=== PATIENT | female | born 1940 | race Caucasian/White ===

== ENCOUNTER 2024-05-30 09:30 | Day surgery (SDC) | payer MEDICARE, OTHER, SELFPAY ==
--- OUTSIDE RECORDS SUMMARY | 2024-04-15 10:09 | XMS_ITS | Data Portability ---
Author Organization [facility], [facility] Address [address] [place] [address] Care Team Providers Care Lehr Operator Name Role Phone PEDRO ABRAMSUR Primary Care Provider Assessment Encounter Date Assessment Date Assessment LastModified by Organization Details LastModified Time 09/25/2017 09/25/2017 X-rays of her hip show no evidence of problems with her right hip replacement. Assessment: Trochanteric bursitis, right hip. Recommendation: Injection followed by physical therapy. She agreed. Injection was performed to well-tolerated. Postinjection care discussed. She will set up a follow-up appointment for about 8 weeks from now. [email or web address] Not available 09/25/2017 08:57:27 Plan of Treatment Reminders Order Date Submit Date Provider Last Modified By Organization Details Last Modified Time Details Appointments None record ed. Lab None record ed. Referral None record ed. Procedures None record ed. Surgeries None record ed. Imaging None record ed. Medication Orders None record ed. Patient TargetsNo targets recorded. Patient InstructionsNo instructions recorded. Reason for Referral None Reported. Results Created Date Observation Date Name Description Value Unit Range Abnormal Flag Note LastModifiedBy Organization Detail LastModifiedTime 09/26/19 18 09/25/2017 XR, hip, unila teral , 2 or 3 view PRELIM INARY INTERP RETATI ON - NOT A FINAL REPORT RESPON SIBLE INTERP RETER: Herminia toscano M.D. (resid ent) EXAMIN ATION: XR HIP 2-3 VW RIGHT (PELVI S OPTION AL) CLINIC AL INDICA TION: Right hip pain status post right total hip arthro plasty . TECHNI QUE: AP view of the pelvis , frog-l eg in AP views of the right hip. COMPAR LARISA: Right hip radiog raph from August 06, 2015. FINDIN GS: The AP pelvis demons trates a normal left hip for the patien t's age. The bony pelvis appear s normal for the patien t's age. There is osteo arthri tis at the facet joints of L5-S1. There is severe athero sclero tic calcif icatio n of the abdomi nal aorta. Two views of the right hip demons trate right hip arthro plasty in normal alignm ent withou t eviden ce of loosen ing. IMPRES JENNIFER: 1. Right total hip arthro plasty is in anatom ic alignm ent withou t loosen ing. 2. Osteoa rthrit is of the facet joints of L5-S1. 3. Advanc ed calcif ic athero sclero sis of the abdomi nal aorta. Dictat ed: 2017 10:36 AM Report ID: [id number] Report ed By: Herminia toscano M.D. (resid ent) (EKIPE [id number]) [facility] Radiology (Imaging) [address] [facility], [place], [address], 09/25/2017 11:01:45 09/26/19 18 09/25/2017 XR, hip, unila teral , 2 or 3 view RESPON SIBLE INTERP RETER: Daren craven M.D. EXAMIN ATION: XR HIP 2-3 VW RIGHT (PELVI S OPTION AL) CLINIC AL INDICA TION: Right hip pain status post right total hip arthro plasty . TECHNI QUE: AP view of the pelvis and two views of the right hip. COMPAR LARISA: Right hip radiog raph from August 06, 2015. FINDIN GS: The AP pelvis demons trates a normal left hip for the patien t's age. The bony pelvis appear s normal for the patien t's age. There is osteoa rthrit is at the facet joints of L5-S1. There is severe athero sclero tic calcif icatio n of the abdomi nal aorta. Two views of the right hip demons trate right hip arthro plasty in normal alignm ent withou t eviden ce of loosen ing. IMPRES JENNIFER: 1. Right total hip arthro plasty is in anatom ic alignm ent withou t loosen ing. 2. Osteoa rthrit is of the facet joints of L5-S1. 3. Advanc ed calcif ic athero sclero sis of the abdomi nal aorta. I, the attend ing physic gonzalo, attest that I have perfor med and/or superv ised the reside nt for the ortega and critic al compon ents of this proced ure. I have person ally review ed the images pertin ent to this examin ation and agree with the interp retati on. Dictat ed: 2017 12:23 PM Report ID: [id number] Report signed in assistant city attorney al system at 018 12:23 Report ed By: Herminia toscano M.D. (resid ent) (EKIPE [id number]) Signed By: Daren craven M.D. (SHOM) [address] Radiology (Imaging) [address] [place] [address], [id number], 09/25/2017 12:37:48 Result Notes None recorded. Procedures Surgical History Date Name Laterality Status Provider Name and Address Organization Details Recorded Time 8 CML Hip injection (right/left) completed CITLALY MELARA MD [address] [place] [address],SUITE [facility], [place], [address] 09/25/2017 08:57:50 Hip Surgery completed Daniela Oliva [facility] 09/25/2017 08:27:13 Imaging Results Imaging Date Name Status LastModified by [facility]iz [facility] Details LastModified Time 09/25/2017 XR, hip, unilateral , 2 or 3 view completed [address] Radiology (Imaging) [address] [place] [address], [id number], 09/25/2017 11:01:45 09/25/2017 XR, hip, unilateral , 2 or 3 view completed [address] Radiology (Imaging) [address] [place] [address], [id number], 09/25/2017 12:37:48 Procedure Notes None recorded. Medical Equipment None Reported. Allergies Allergen ID Allergen Name Allergen Category Reaction Reaction Severity Criticality Documentation Date Start Date Code Code System Note Provider Name and Address Organization Details Recorded Time 202928 No known allergy (situatio n) Not available Not available Not available Not available 04/14/2016 57930 6003 SNOMED Not Available Critical [facility] hospital 7 19:02:54 Medications Name Sig Start Date Stop Date Status Note LastModified by Organization Details LastModified Time amoxicillin 500 mg tablet 1 hour before dental work 2016 active Refill Quantity: 0; Recorded 03/05/2016 1:57PM by CITLALY MELARA MD, Review Not Available Not Available Not Available Doxycycline Hyclate Coated 100 mg capsule active Recorded 09/21/2015 1:53PM by Remi Garcia, Surgery Completed Not Available Not Available Not Available lisinopril 10 mg-hydrochl orothiazide 12.5 mg tablet active Not Available Not Available Not Available doxycycline hyclate 100 mg tablet active Not Available Not Available No t Available Vitals Date Recorded Body height Body mass index (BMI) Body weight Body temperature Provider Name and Address Organization Details Last Updated DateTime 09/25/2017 157.48 cm 26.7 kg/m2 75295.49 g 97.8 [degF] Daniela Oliva MA - [facility] 09/25/2017 08:25:47 Date Recorded Pain severity - 0-10 verbal numeric rating [Score] - Reported Provider Name and Address Organization Details Last Updated DateTime 09/25/2017 8 Not Available Critical access hospital 8 05:59:29 Social History Question Answer Notes LastModified by Organizat ion Details LastModified Time Tobacco Smoking Status Never Smoker Daniela wiseman MA [facility] 09/25/2017 08:19:14 Do You Have An Advance Directive? Yes [email or web address] Information not available 09/25/2017 What Is Your Level Of Alcohol Consumption? Occasional [email or web address] Information not available 09/25/2017 Which Illicit Or Recreational Drugs Have You Used? None [email or web address] Information not available 09/25/2017 How Many Days In The Past Year Have You Had A Heavy Drinking Consumption (4+ Female, 5+ Male)? 0 Information no t available 09/25/2017 What Was The Date Of Your Most Recent Tobacco Screening? 09/25/2017 Information not available 09/08/2018 Sex: Unknown Functional Status None recorded. Mental Status None recorded. Family History Relationship Description Onset Age of this Age Resolved Age Notes LastModified by Organization Details LastModified Time Father Heart disease [email or web address] Not available 2017 08:26:39 Father Myocardial infarction Not available 09/25 08:26:45 Mother Heart disease [email or web address] Not available 2017 08:26:39 Notes:Blood clot: mother Medical History Condition Response Gout N Lung Disease N Depression N Pacemaker N Deep Vein Thrombosis N Blood Clot N Acid Reflux (GERD) N Cancer N Rheumatoid Arthritis N Fibromyalgia N Kidney Disease N Thyroid Problems N Heart Attack ([place]) N Diabetes N Bleeding Disorder N Asthma/COPD N Hepatitis N Heart Disease N Hypertension N Stomach Ulcer N Osteoporosis N Gynecological HistoryNo gynecological history recorded. Obstetrics History GPAL:G 0 P 0 0 0 0 Past Encounters Encounter ID Performer Location Encounter Start Date Encounter Closed Date Diagnosis/Indication Diagnosis SNOMED-CT Code Diagnosis ICD10 Code Diagnosis Note [id number] CITLALY MELARA MD [address] [place] [address] 09/25/2017 07:46:28 09/25/2017 08:52:26 Health Concerns Section Related Observation LastModified by Organization Detai ls LastModified Time None Recorded Concern Status LastModified by Organization Details LastModified Time None Recorded Advance Directives Directive Y: Payers Encounter Date Sequence Insurance Name Policy Number Policy Hanks Covered Member ID Hanks Member ID Guarantor Name 09/25/2017 1 [place] B-[place] [employer] Maurice Armsa [id number] Maurice Armas 09/25/2017 2 [employer] [place] - PLAN 1 (MEDICARE SUPPLEMENT) Maurice Armas [id number] Maurice Armas Notes Date Note Type Note Provider Name and Address Organization Details Recorded Time 09/25/2017 text/html This 77-year-old female is here today regarding right hip pain. She is 2 years after right total hip replacement. She is generally quite active. An avid golfer. For several months she's been experiencing some pain around the lateral right hip. It bothers after she is more heavily active. It bothers if she lies on it at night. It is noticeable getting up from sitting and climbing stairs. She denies fever or chills and feels well. She has been to the dentist but is taken her prophylactic antibiotic. CITLALY MELARA MD [address] [place] [address],[address], [place], [address], [facility] - [facility] 09/25/2017 08:58:04 OBGyn Episode No OBEpisode recorded.
[2024-05-25 10:05] VITALS: BMI 27.0
[2024-05-30 10:38] VITALS: BP 114/64; PULSE 59; RESP 14; TEMP 36.8; O2SAT 97
[2024-05-30] MEDS: Tetracaine HCl/PF 0.5% Oph Sol 4 ML DROPS 1 DROP EYE-LEFT (10:41)
[2024-05-30] MEDS: Lactated Ringers 500 ML 50 ML IV (10:41)
[2024-05-30] MEDS: Phenylephrine HCL 2.5% Oph SoL 2 ML BOTTLE 1 DROP EYE-LEFT ×3 (10:42→10:50)
[2024-05-30] MEDS: Cyclopentolate 1 % Ophth Sol 2 ML DRPBTL 1 DROP EYE-LEFT ×3 (10:43→10:48)
[2024-05-30] MEDS: Tropicamide 1 % Ophth Sol 3 ML BTL 1 DROP EYE-LEFT ×3 (10:43→10:49)
--- NOTE | 2024-05-30 10:43 | P.CONAN_ITS ---
HPI - Anesthesia Eval Consult details Narrative: 84 yo F presenting for left cataract extraction IOL insertion [facility] Past Medical History Medical History (Updated 05/25/24 @ 10:01 by Nicole Hawkins RN) PVC's (premature ventricular contractions) Sinus bradycardia Rosacea Polymyalgia rheumatica Onychomycosis HTN (hypertension) HLD (hyperlipidemia) Constipation BPPV (benign paroxysmal positional vertigo) Cataracts, bilateral Family History Family history of problems with anesthesia: No Surgical History Surgical History (Updated 05/25/24 @ 10:01 by Nicole Hawkins RN) History of carpal tunnel release History of hip replacement Hx of tonsillectomy Hx of tubal ligation Hx of colonoscopy History of Problems with Anesthesia: No Social History Social History (Updated 05/25/24 @ 10:09 by Nicole Hawkins RN) Household Members: None Patient Tobacco Use Status: Never used Tobacco e-Cigarette/Vaping Use: Never Used Advance Directives: No Advance Directives Information Provided: Yes Advance Directives on File: No Healthcare Proxy: No Meds Allergies Allergy/AdvReac Type Severity Reaction Status Date / Time No Known Allergies Allergy Verified 05/25/24 10:01 Active Medications: Current Medications Lactated Ringer's (Lr) 500 mls @ 50 mls/hr IV .Q10H DEMETRIUS Stop: 05/30/24 20:14 Povidone Iodine (Povidone Iodine 5 % Ophth Soln 30 Ml Bottle) 1 appl EYE-LEFT PREOP PRN PRN Reason: Pre-Op Surgical Implant Prophy Home Medications ?Medication ?Instructions ?Recorded ?Confirmed ?Last Taken ?Type Stool Softener 05/25/24 05/25/24 Unknown History brimonidine 0.2 % eye drops 1 drp ophthalmic (eye) BID 05/25/24 05/25/24 Unknown History fluticasone propionate 50 1 spray intranasal DAILY 05/25/24 05/25/24 Unknown History mcg/actuation nasal spray,suspension hydrocortisone 2.5 % topical topical 05/25/24 Unknown History ointment lisinopril 10 0.5 tab PO DAILY 05/25/24 05/25/24 Unknown History mg-hydrochlorothiazide 12.5 mg tablet multivitamin 1 tab PO DAILY 05/25/24 05/25/24 Unknown History Exam Exam Date and Time: 05/30/24 1034 Height,Weight and Vital Signs: Height 5 ft 1.02 in Weight 64.8 kg Last Vital Signs Temp 98.2 F 05/30/24 10:38 Pulse 59 05/30/24 10:38 Resp 14 05/30/24 10:38 BP 114/64 05/30/24 10:38 Pulse Ox 97 05/30/24 10:38 O2 Del Method Room Air 05/30/24 10:38 Airway Mallampati Class: II TM Dist: >3cm Neck ROM: Full Loose/Missing/Broken Teeth: No (patient denies any loose or broken teeth) Heart: S1S2 Lungs: CTAB Assessment and Plan Assessment Anesthesia Assessment: Anesthesia Plan Discussed and Chart Reviewed Final Anesthetic Review Family History of Problems with Anesthesia: No History of Problems with Anesthesia: No NPO: Yes ASA Class: II Final Preanesthetic Review: No Changes in Pt Med Stat, Meds/Allgs Chart Reviewed, Consent Obtained/Reviewed and Anes Risks/Benef Reviewed Patient Risk: Low Procedure Risk: Low Anesthetic Plan Anesthetic Plan: MAC: and Agree w/ Assess. and Plan Disposition: Standard PACU
[2024-05-30] MEDS: Ketorolac Tromethamine 0.5% Op 5 ML DROPS 1 DROP EYE-LEFT ×3 (10:44→10:49)
--- NOTE | 2024-05-30 11:16 | MHC.SHP ---
Pre-Procedural Eval Section A - 24 Hr Update-Section A only Date of Service: 05/30/24 The patient is an INPATIENT: No Changes since office visit: No Cold of Flu in the past 2 weeks, No New Medical Problems, No Changes in Medication and No Patient answered all questions The patient has been examined within 24 hours of the surgical procedure. The History & Physical has been completed within 30 days and I have reviewed it.: Yes Section B - Complete if H&P > 30 days Chief Complaint: Age-related nuclear cataract, left eye Allergies: Allergies Allergy/AdvReac Type Severity Reaction Status Date / Time No Known Allergies Allergy Verified 05/30/24 10:52 Plan Diagnosis/Plan: Unchanged I have reviewed the history and physical and performed a pertinent physical examination on my patient. No changes have occurred unless specified. Time Spent With Patient Time: Total time managing care of this patient today ____ minutes.
--- NOTE | 2024-05-30 11:17 | HO.PNOPHT ---
Ophthalmology Procedure Procedure Date of Service: 05/30/24 Ophthalmology Viscoelastic: Healon Duet Dual Pack Pro Ophthalmology Lenses: IOL Acrysof MP - [id number] (20) Procedure Notes: PREOPERATIVE DIAGNOSIS: Decreased visual acuity left eye secondary to cataract POSTOPERATIVE DIAGNOSIS: Same PROCEDURE: Left cataract extraction with intraocular lens insertion SURGEON: Gigi Voss M.D. ANESTHESIA: Topical/MAC ESTIMATED BLOOD LOSS: None COMPLICATIONS: None After obtaining informed consent, the patient was brought to the operation room suite and placed in the supine position. After adequate sedation per anesthesia, topical drops of Tetracaine were given to the left eye. The eye was then prepped and draped in the usual sterile fashion. The operating room microscope was then positioned over the operative eye and a lid speculum placed. A paracentesis was created. Viscoelastic was then instilled into the anterior chamber. A three plane incision was then created temporally, utilizing a 2.85 mm keratome. Capsulotomy forceps were then utilized to create a circular tear capsulotomy. Hydrodissection and hydrodelineation were carried out until adequate mobilization of the nucleus occurred. Phacoemulsification was then utilized to remove the dense central nucleus followed by removal of the cortical material utilizing the automated aspiration irrigation unit. Viscoat elastic was instilled into the posterior capsular bag followed by placement of a posterior chamber intraocular lens without difficulty. The residual Viscoat elastic was then removed utilizing the automated IA machine. The wound was check and found to be watertight. The patient tolerated the procedure well and the lid speculum was removed. Intracameral injection of Vigamox 0.1 mL followed by a subtenon injection of Kenalog-40 0.2 mL were administered. The patient will be seen in the a.m.
[2024-05-30 11:40] VITALS: BP 135/77; PULSE 54; RESP 16; TEMP 36.6; O2SAT 96
== END 2024-05-30 11:54 | disposition home or self-care (01) ==
PROVIDERS: PCP Internal Medicine; Visit Provider Ophthalmology
PROC: (CPT 66985; principal; 2024-05-30 12:30)
DX: H25.12 Age-related nuclear cataract, left eye (principal); H52.4 Presbyopia; H40.1132 Primary open-angle glaucoma, bilateral, moderate stage; H35.3131 Nonexudative age-related macular degeneration, bilateral, early dry stage; H11.153 Pinguecula, bilateral; H18.423 Band keratopathy, bilateral; H18.413 Arcus senilis, bilateral; I10 Essential (primary) hypertension; L71.9 Rosacea, unspecified; Z79.899 Other long term (current) drug therapy; Z87.891 Personal history of nicotine dependence
CPT/HCPCS: 66984; J2250; J3301; V2630

== ENCOUNTER 2024-06-13 07:32 | Day surgery (SDC) | payer MEDICARE, OTHER, SELFPAY ==
--- OUTSIDE RECORDS SUMMARY | 2024-05-18 09:31 | XMS_ITS | Data Portability ---
Author Organization [facility], [facility] Address [address] [place] [address] Care Team Providers Care Dust Mixer Name Role Phone PEDRO ABRAMSUR Primary Care Provider [phone] Assessment Encounter Date Assessment Date Assessment LastModified [...] Dictat ed: 2017 10:36 AM Report ID: [id number] Report ed By: Herminia toscano M.D. (resid ent) (EKIPE [id number]) [email or web address] [facility] Radiology (Imaging) [address] [facility], [place], [address], 09/25/2017 11:01:45 09/26/19 18 09/25/2017 XR, hip, [...] Dictat ed: 2017 12:23 PM Report ID: [id number] Report signed in distillation operator al system at 018 12:23 Report ed By: Herminia toscano M.D. (resid ent) (EKIPE [id number]) Signed By: Daren craven M.D. (SHOM) [address] Radiology (Imaging) [address] [place] [address], [address], 09/25/2017 12:37:48 Result Notes None recorded. Procedures Surgical History Date Name Laterality Status Provider Name and Address Organization Details Recorded Time 8 CML Hip injection (right/left) completed CITLALY MELARA MD [address] [place] [address],SUITE [facility], [place], [address] 09/25/2017 08:57:50 Hip Surgery completed Daniela Oliva [facility] 09/25/2017 08:27:13 Imaging Results Imaging Date Name Status LastModified by Organiz [facility] Details LastModified Time 09/25/2017 XR, hip, unilateral , 2 or 3 view completed [address] Radiology (Imaging) [address] [place] [address], [address], 09/25/2017 11:01:45 09/25/2017 XR, hip, unilateral , 2 or 3 view completed [address] Radiology (Imaging) [address] [place] [address], [address], 09/25/2017 12:37:48 Procedure Notes None recorded. Medical Equipment None Reported. Allergies Allergen ID Allergen Name Allergen Category Reaction Reaction Severity Criticality Documentation Date Start Date Code Code System Note Provider Name and Address Organization Details Recorded Time 396013 No known allergy (situatio n) Not available Not available Not available Not available 04/14/2016 88583 6003 SNOMED Not Available Critical access hospital [...] Updated DateTime 09/25/2017 157.48 cm 26.7 kg/m2 13176.49 g 97.8 [degF] Daniela Oliva MA - [facility] 09/25/2017 08:25:47 Date Recorded Pain severity - 0-10 verbal numeric rating [Score] - Reported Provider Name and Address Organization Details Last Updated DateTime 09/25/2017 8 Not Available Critical access hospital 8 05:59:29 Social History Question Answer Notes LastModified by Organizat ion Details LastModified Time Tobacco Smoking Status Never Smoker Daniela wiseman MA [facility] 09/25/2017 08:19:14 Do You Have An Advance Directive? Yes [email or web address] Information not available 09/25/2017 What Is Your Level Of Alcohol Consumption? Occasional [email or web address] Information not available 09/25/2017 Which Illicit Or Recreational Drugs Have You Used? None [email or web address] Information not available 09/25/2017 How Many Days In The Past Year Have You Had A Heavy Drinking Consumption (4+ Female, 5+ Male)? 0 [email or web address] Information no t available 09/25/2017 What Was The Date Of Your Most Recent Tobacco Screening? 09/25/2017 Information not available 09/08/2018 Sex: Unknown Functional Status None recorded. Mental Status None recorded. Family History Relationship Description Onset Age of this Age Resolved Age Notes LastModified by Organization Details LastModified Time Father Heart disease [email or web address] Not available 2017 08:26:39 Father Myocardial infarction Not available 09/25 08:26:45 Mother Heart disease [email or web address] Not available 2017 08:26:39 Notes:Blood clot: mother Medical History Condition Response Gout N Thyroid Problems N Lung Disease N Depression N Pacemaker N Heart Attack ([place]) N Deep Vein Thrombosis N Diabetes N Bleeding Disorder N Blood Clot N Acid Reflux (GERD) N Cancer N Asthma/COPD N Hepatitis N Heart Disease N Rheumatoid Arthritis N Fibromyalgia N Hypertension N Stomach Ulcer N Osteoporosis N Kidney Disease N Gynecological HistoryNo gynecological history recorded. Obstetrics History GPAL:G 0 P 0 0 0 0 Past Encounters Encounter ID Performer Location Encounter Start Date Encounter Closed Date Diagnosis/Indication Diagnosis SNOMED-CT Code Diagnosis ICD10 Code Diagnosis Note [id number] CITLALY MELARA MD [address] [place] [address] 09/25/2017 07:46:28 09/25/2017 08:52:26 Health Concerns Section Related Observation LastModified by Organization Detai ls LastModified Time None Recorded Concern Status LastModified by Organization Details LastModified Time None Recorded Advance Directives Directive Y: Payers Encounter Date Sequence Insurance Name Policy Number Policy Hanks Covered Member ID Hanks Member ID Guarantor Name 09/25/2017 1 [place] [employer] Maurice Armas [id number] Maurcie Armas 09/25/2017 2 [employer] [place] - PLAN 1 (MEDICARE SUPPLEMENT) Maurice Armas [id number] Maurice Armas Notes Date Note Type Note [...] taken her prophylactic antibiotic. CITLALY MELARA MD [address] [place] [address],[address], [place], [address], [facility] - [facility] 09/25/2017 08:58:04 OBGyn Episode No OBEpisode recorded.
[2024-05-25 10:10] VITALS: BMI 27.0
--- NOTE | 2024-06-09 14:49 | HO.ANESPROP2 ---
Documented by User: Radha Penaloza NP 06/09/24 14:50 HPI - Anesthesia Eval Consult details Narrative: 84yo F for Right Cataract Extraction IOL Insertion Left eye 05/30/24: [facility] 1 PMFSH Past Medical History Medical History (Updated 05/25/24 @ 10:01 by Nicole Hawkins, CATHERINE) PVC's (premature ventricular contractions) Sinus bradycardia Rosacea Polymyalgia rheumatica Onychomycosis HTN (hypertension) HLD (hyperlipidemia) Constipation BPPV (benign paroxysmal positional vertigo) Cataracts, bilateral Family History Family history of problems with anesthesia: No Surgical History Surgical History (Updated 05/31/24 @ 11:46 by Nicole Hawkins RN) History of left cataract extraction (05/30/24) History of carpal tunnel release History of hip replacement Hx of tonsillectomy Hx of tubal ligation Hx of colonoscopy History of Problems with Anesthesia: No Social History Social History (Updated 05/25/24 @ 10:09 by Nicole Hawkins RN) Household Members: None Patient Tobacco Use Status: Never used Tobacco e-Cigarette/Vaping Use: Never Used Are you DNR?: No Advance Directives: No Advance Directives Information Provided: Yes Advance Directives on File: No Meds Allergies Allergy/AdvReac Type Severity Reaction Status Date / Time No Known Allergies Allergy Verified 05/30/24 10:52 Home Medications ?Medication ?Instructions ?Recorded ?Confirmed ?Last Taken ?Type Stool Softener 05/25/24 05/25/24 Unknown History brimonidine 0.2 % eye drops 1 drp ophthalmic (eye) BID 05/25/24 05/30/24 Unknown History fluticasone propionate 50 1 spray intranasal DAILY 05/25/24 05/30/24 Unknown History mcg/actuation nasal spray,suspension hydrocortisone 2.5 % topical topical 05/25/24 Unknown History ointment lisinopril 10 0.5 tab PO DAILY 05/25/24 05/30/24 Unknown History mg-hydrochlorothiazide 12.5 mg tablet multivitamin 1 tab PO DAILY 05/25/24 05/30/24 Unknown History Exam Height,Weight and Vital Signs: Height 5 ft 1.02 in Weight 64.8 kg Assessment and Plan Assessment Anesthesia Assessment: Chart Reviewed Final Anesthetic Review Family History of Problems with Anesthesia: No History of Problems with Anesthesia: No Documented by User: Jeannie Gilbert MD 06/13/24 08:51 [facility] Past Medical History Medical History (Updated 05/25/24 @ 10:01 by Nicole Hawkins, CATHERINE) PVC's (premature ventricular contractions) Sinus bradycardia Rosacea Polymyalgia rheumatica Onychomycosis HTN (hypertension) HLD (hyperlipidemia) Constipation BPPV (benign paroxysmal positional vertigo) Cataracts, bilateral Surgical History Surgical History (Updated 05/31/24 @ 11:46 by Nicole Hawkins, CATHERINE) History of left cataract extraction (05/30/24) History of carpal tunnel release History of hip replacement Hx of tonsillectomy Hx of tubal ligation Hx of colonoscopy Social History Social History (Updated 05/25/24 @ 10:09 by Nicole Hawkins, CATHERINE) Household Members: None Patient Tobacco Use Status: Never used Tobacco e-Cigarette/Vaping Use: Never Used Are you DNR?: No Advance Directives: No Advance Directives Information Provided: Yes Advance Directives on File: No Meds Allergies Allergy/AdvReac Type Severity Reaction Status Date / Time No Known Allergies Allergy Verified 05/30/24 10:52 Home Medications ?Medication ?Instructions ?Recorded ?Confirmed ?Last Taken ?Type Stool Softener 05/25/24 05/25/24 Unknown History brimonidine 0.2 % eye drops 1 drp ophthalmic (eye) BID 05/25/24 05/30/24 Unknown History fluticasone propionate 50 1 spray intranasal DAILY 05/25/24 05/30/24 Unknown History mcg/actuation nasal spray,suspension hydrocortisone 2.5 % topical topical 05/25/24 Unknown History ointment lisinopril 10 0.5 tab PO DAILY 05/25/24 05/30/24 Unknown History mg-hydrochlorothiazide 12.5 mg tablet multivitamin 1 tab PO DAILY 05/25/24 05/30/24 Unknown History Exam Airway Mallampati Class: II (caps all over) TM Dist: >3cm Neck ROM: Full Heart: rrr Lungs: cta Assessment and Plan Assessment Anesthesia Assessment: Anesthesia Plan Discussed Final Anesthetic Review NPO: Yes ASA Class: II Final Preanesthetic Review: No Changes in Pt Med Stat, Meds/Allgs Chart Reviewed and Consent Obtained/Reviewed Patient Risk: Low Procedure Risk: Low Anesthetic Plan Anesthetic Plan: MAC: Disposition: Standard PACU
[2024-06-13 08:42] VITALS: BP 142/67; PULSE 51; RESP 16; TEMP 36.9; O2SAT 97
[2024-06-13] MEDS: Tetracaine HCl/PF 0.5% Oph Sol 4 ML DROPS 1 DROP EYE-RIGHT (08:44)
[2024-06-13] MEDS: Cyclopentolate 1 % Ophth Sol 2 ML DRPBTL 1 DROP EYE-RIGHT ×3 (08:45→08:53)
[2024-06-13] MEDS: Tropicamide 1 % Ophth Sol 3 ML BTL 1 DROP EYE-RIGHT ×3 (08:46→08:53)
[2024-06-13] MEDS: Lactated Ringers 500 ML 50 ML IV (08:46)
[2024-06-13] MEDS: Ketorolac Tromethamine 0.5% Op 5 ML DROPS 1 DROP EYE-RIGHT ×3 (08:47→08:54)
[2024-06-13] MEDS: Phenylephrine HCL 2.5% Oph SoL 2 ML BOTTLE 1 DROP EYE-RIGHT ×3 (08:48→08:55)
--- NOTE | 2024-06-13 09:44 | P.PCNO_ITS ---
Ophthalmology Procedure Procedure Date of Service: 06/13/24 Ophthalmology Viscoelastic: Healon Duet Dual Pack Pro Ophthalmology Lenses: IOL Acrysof MP - [id number] (20.5) Procedure Notes: PREOPERATIVE DIAGNOSIS: Decreased visual acuity right eye secondary to cataract POSTOPERATIVE DIAGNOSIS: Same PROCEDURE: Right cataract extraction with intraocular lens insertion SURGEON: Gigi Voss M.D. ANESTHESIA: Topical/MAC ESTIMATED BLOOD LOSS: None COMPLICATIONS: None After obtaining informed consent, the patient was brought to the operating room suite and placed in the supine position. After adequate sedation per anesthesia, topical drops of Tetracaine were given to the right eye. The eye was then prepped and draped in the usual sterile fashion. The operating room microscope was then positioned over the operative eye and a lid speculum placed. A paracentesis was created. Viscoelastic was then instilled into the anterior chamber. A three plane incision was then created temporally, utilizing a 2.85 mm keratome. Capsulotomy forceps were then utilized to create a circular tear capsulotomy. Hydrodissection and hydrodelineation were carried out until adequate mobilization of the nucleus occurred. Phacoemulsification was then utilized to remove the dense central nu cleus followed by removal of the cortical material utilizing the automated aspiration irrigation unit. Viscoelastic was instilled into the posterior capsular bag followed by placement of a posterior chamber intraocular lens without difficulty. The residual Viscoelastic was then removed utilizing the automated IA machine. The wound was checked and found to be watertight. The patient tolerated the procedure well and the lid speculum was removed. Intracameral injection of Vigamox 0.1 mL followed by a subtenon injection of Kenalog-40 0.2 mL were administered. The patient will be seen in the a.m.
--- NOTE | 2024-06-13 09:44 | MHC.SHP ---
Pre-Procedural Eval Section A - 24 Hr Update-Section A only Date of Service: 06/13/24 The patient is an INPATIENT: No Changes since office visit: No Cold of Flu in the past 2 weeks, No New Medical Problems, No Changes in Medication and No Patient answered all questions The patient has been examined within 24 hours of the surgical procedure. The History & Physical has been completed within 30 days and I have reviewed it.: Yes Section B - Complete if H&P > 30 days Chief Complaint: Age-related nuclear cataract, right eye Allergies: Allergies Allergy/AdvReac Type Severity Reaction Status Date / Time No Known Allergies Allergy Verified 05/30/24 10:52 Plan Diagnosis/Plan: Unchanged I have reviewed the history and physical and performed a pertinent physical examination on my patient. No changes have occurred unless specified. Time Spent With Patient Time: Total time managing care of this patient today ____ minutes.
[2024-06-13 10:11] VITALS: BP 155/76; PULSE 46; RESP 16; TEMP 36.1; O2SAT 100
== END 2024-06-13 10:20 | disposition home or self-care (01) ==
PROVIDERS: PCP Internal Medicine; Visit Provider Ophthalmology
PROC: (CPT 66985; principal; 2024-06-13 10:00)
DX: H25.11 Age-related nuclear cataract, right eye (principal); H52.4 Presbyopia; H40.1132 Primary open-angle glaucoma, bilateral, moderate stage; H35.3131 Nonexudative age-related macular degeneration, bilateral, early dry stage; H18.423 Band keratopathy, bilateral; H18.413 Arcus senilis, bilateral; H11.153 Pinguecula, bilateral; Z83.518 Family history of other specified eye disorder; I10 Essential (primary) hypertension; L71.9 Rosacea, unspecified; Z79.899 Other long term (current) drug therapy; Z87.891 Personal history of nicotine dependence
CPT/HCPCS: 66984; J2250; J3301; V2630